=== PATIENT | female | born 1995 | race Caucasian/White ===

== ENCOUNTER 2018-04-05 21:15 | Emergency (ER) | payer OTHER ==
[2018-04-05] MEDS ORDERED: Azithromycin TAB* 250 MG PO ONE (22:31)
[2018-04-05] MEDS ORDERED: cefTRIAXone VIAL(*) 250 MG VIAL IM ONE (22:31)
[2018-04-05] MEDS ORDERED: Lidocaine 1%* 5 ML VIAL ONE (22:37)
--- NOTE | 2018-04-05 22:53 | ED ---
GI/ HPI - HPI Summary HPI Summary: Pt. is a 22 female who presents to the ER for vaginal discharge and genital rash x several days. Pt. states she is a student at and is in [place] visiting her boyfriends parents. Pt. states she was sexually active for the first time last week with her current boyfriend and they did not use protection. Pt. states he did not ejaculate inside of her. Pt. states she noted an itching rash and a foul smelling vaginal discharge over the last few days. Patient states that her significant other has had exposure to herpes in the past and she is concerned rash is herpetic. She denies fever, chills, abd. pain , N/V. Symptoms are mild in severity. No current modifying factors. Patient's significant other is also a patient in the ER being tested and treated for STIs. - History of Current Complaint Chief Complaint: EDGeneral Time Seen by Provider: 04/05/18 21:27 Stated Complaint: RASH IN GENITAL AREA Hx Obtained From: Patient Pain Intensity: 0 - Allergy/Home Medications Allergies/Adverse Reactions: Allergies Allergy/AdvReac Type Severity Reaction Status Date / Time Penicillins Allergy Rash Verified 04/05/18 21:34 Home Medications: Home Medications Lisdexamfetamine Dimesylate [Vyvanse] 20 mg PO DAILY 04/05/18 [History Confirmed 04/05/18] PMH/Surg Hx/FS Hx/Imm Hx Previously Healthy: Yes Infectious Disease History: No Infectious Disease History: Denies: Traveled Outside the [place] in Last 30 Days - Family History Known Family History: Positive: Other - Noncontributory - Social History Occupation: Student Lives: Dormitory/Roommates Alcohol Use: Weekly Substance Use Type: Reports: Marijuana Substance Use Comment - Amount & Last Used: monthly Smoking Status (MU): Current Some Day Smoker Review of Systems Constitutional: Negative Negative: Fever, Chills Gastrointestinal: Negative Negative: Abdominal Pain, Vomiting, Nausea Positive: discharge, other - rash All Other Systems Reviewed And Are Negative: Yes Physical Exam Triage Information Reviewed: Yes Vital Signs On Initial Exam: Initial Vitals Temp Pulse Resp BP Pulse Ox 97.5 F 126 16 129/83 100 04/05/18 21:16 04/05/18 21:16 04/05/18 21:16 04/05/18 21:16 04/05/18 21:16 Vital Signs Reviewed: Yes Appearance: Positive: Well-Appearing - Pt. sitting on bed in NAD. Skin: Positive: Warm, Dry Head/Face: Positive: Normal Head/Face Inspection Eyes: Positive: Normal, EOMI Abdomen Description: Positive: Nontender, Soft Pelvic Exam: Positive: Other - Exam performed with femal nurse in room, K[facility]. External genitalia is unremarkable without lesions. A few small erythematous papules noted to upper inner thighs. No vesicles or blisters. Speculum exam reveals a mild amount of this whitish discharge. No lesions to cervix. No CMT. Neurological: Positive: Normal, CN Intact II-III Psychiatric: Positive: Affect/Mood Appropriate Diagnostics - Vital Signs Vital Signs Temp Pulse Resp BP Pulse Ox 04/05/18 21:16 97.5 F 126 16 129/83 100 - Laboratory Lab Statement: Any lab studies that have been ordered have been reviewed, and results considered in the medical decision making process. GIGU Course/Dx - Course Course Of Treatment: Pt. presenting for rash and vaginal discharge after unprotected sex. She is afebrile and well appearing. Pelvic exam reveals a small amount of discharge. Cultures were obtained. Rash appears to be a mild folliculitis, do not suspect HSV, viral culture obtained. Will treat patient prophylactically with Rocephin and Zithromax. Advised patient to follow-up with her [facility] on Saturday. Will call if cultures are positive. Also advised patient she will need a test if she is late for her next menstrual cycle. Advised patient to always use sexual protection such as condoms. Advised to avoid sexual activity until symptoms resolve. Patient understands and agrees with plan. - Diagnoses Differential Diagnoses - Female: STD, Ureteral Calculi Provider Diagnoses: Vaginal discharge, Folliculitis, Possible exposure to STD Discharge - Sign-Out/Discharge Documenting (check all that apply): Patient Departure - Discharge Plan Condition: Good Disposition: HOME Patient Education Materials: Sexually Transmitted Diseases (ED), Vaginal Discharge (ED) Referrals: [facility] [Outside] No Primary Care Phys,NOPCP [Primary Care Provider] - Additional Instructions: Follow up with [facility] on Saturday Will call if cultures come back positive Avoid sexual activity until symptoms resolve Always use sexual protection Return to ER if symptoms change or worsen - Billing Disposition and Condition Condition: GOOD Disposition: Home
[2018-04-05 23:19] VITALS: BP 116/84
== END 2018-04-05 23:17 | disposition home or self-care (01) ==
LOC: ED 21:15
DX: N89.8 Other specified noninflammatory disorders of vagina (principal); L73.9 Follicular disorder, unspecified
CPT/HCPCS: 87480; 87491; 87510; 87529; 87591; 87661; 96372; 99282; A9270-GY; J0696